=== PATIENT | female | born 1935 | race Caucasian/White ===

== ENCOUNTER 2017-10-13 23:23 | Emergency (ER) | payer MEDICARE ==
[~2017-10-13] VITALS: Ht 162.6 cm; Wt 70.8 kg
--- OUTSIDE RECORDS SUMMARY | 2017-10-13 23:26 | XMS REPORT | Clinical Summary ---
Author Author ERLINDA [employer] [facility] Organization [facility] [employer] [facility] Address Unknown Phone Unavailable Care Team Providers Care Assembly Member Name Role Phone PCP Unavailable Allergies Not on File Current Medications Not on file Active Problems Not on file Encounters Date Type Specialty Care Team Description 07/01/2017 Hospital Yvan Mclean MD Cough Encounter 07/01/2017 Outside Orders Yvan Mclean MD Cough (Primary Dx) after 10/12/2016 Social History Tobacco Use Types Packs/Day Years Used Date Never Assessed Sex Assigned at Date Recorded Not on file Last Filed Vital Signs Not on file Plan of Treatment Not on file Results * XR Chest 2 Views (07/01/2017 12:50 PM) Specimen Performing Laboratory GE [facility]IS Narrative FINAL REPORT TECHNIQUE: 2 views of the chest. COMPARISON: None FINDINGS: The cardiac silhouette is within normal limits.Hiatal hernia suspected. Lungs are clear.No acute skeletal abnormality. Soft tissues appear unremarkable. IMPRESSION: No acute cardiopulmonary disease. Signed: Makeda Khalil MD Report Verified Date/Time:07/01/2017 15:23:54 Reading Location: [facility] Radiology Reading Room Procedure Note Interface, External Ris In - 07/01/2017 3:26 PM SAP CRM DEVELOPER FINAL REPORT TECHNIQUE: 2 views of the chest. COMPARISON: None FINDINGS: The cardiac silhouette is within normal limits. Hiatal hernia suspected. Lungs are clear. No acute skeletal abnormality. Soft tissues appear unremarkable. IMPRESSION: No acute cardiopulmonary disease. Signed: Makeda Khalil MD Report Verified Date/Time: 07/01/2017 15:23:54 Reading Location: [facility] Radiology Reading Room after 10/12/2016
--- OUTSIDE RECORDS SUMMARY | 2017-10-13 23:26 | XMS REPORT | Clinical Summary ---
Author Author [facility] Address Unknown Phone Unavailable Care Team Providers Care Blower Feeder Dyed Raw Stock Name Role Phone Asked, Pcp PCP Unavailable Allergies Not on File Current Medications Not on file Active Problems Not on file Encounters Date Type Specialty Care Team Description 07/04/2017 Hospital Radiology Ratna Zhang MD Dysphagia, unspecified Encounter type 07/03/2017 Transcribe Access Ratna Zhang MD Dysphagia, unspecified Orders type (Primary Dx) after 10/12/2016 Social History Tobacco Use Types Packs/Day Years Used Date Never Assessed Sex Assigned at Date Recorded Not on file Last Filed Vital Signs Not on file Plan of Treatment Health Maintenance Due Date Last Done Comments ZOSTER VACCINE 1993 PNEUMOCOCCAL 1998 POLYSACCHARIDE VACCINE AGE 65 AND OVER PNEUMOCOCCAL-13 1998 INFLUENZA VACCINE 03/25/2017 Results * FL Modified Barium Swallow (07/04/2017 11:19 AM) Specimen Performing Laboratory [facility] [address] [place] [id number] Narrative EXAMINATION:FL MODIFIED BARIUM SWALLOW CLINICAL HISTORY:R13.10 Dysphagiaunspecified, R13.10 COMPARISON:None. Fluoroscopy time: 2.9TOTAL IMAGES:1Peak Skin Dose:8.6 mGy FINDINGS: 1.The patient swallowed varying consistencies of barium under direct lateral fluoroscopic evaluation. The study was performed in conjunction with speech pathology. IMPRESSION: 1.There is deep laryngeal penetration with the thin contrast barium to the level the vocal cords. Mild penetration was noted with the nectar consistency. The patient was able to tolerate the semisolid barium consistency. No evidence for aspiration. Please refer to Speech Pathology report for further details. [facility]-[id number] Procedure Note Interface, Radiology Results Incoming - 07/04/2017 1:19 PM GIS TECHNICIAN EXAMINATION: FL MODIFIED BARIUM SWALLOW CLINICAL HISTORY: R13.10 Dysphagia unspecified, R13.10 COMPARISON: None. Fluoroscopy time: 2.9 TOTAL IMAGES: 1 Peak Skin Dose: 8.6 mGy FINDINGS: 1. The patient swallowed varying consistencies of barium under direct lateral fluoroscopic evaluation. The study was performed in conjunction with speech pathology. IMPRESSION: 1. There is deep laryngeal penetration with the thin contrast barium to the level the vocal cords. Mild penetration was noted with the nectar consistency. The patient was able to tolerate the semisolid barium consistency. No evidence for aspiration. Please refer to Speech Pathology report for further details. [facility]-[id number] after 10/12/2016 Insurance Payer Benefit Subscriber ID Type Phone Address Plan / Group HUMANA MEDICARE HUMANA xxxxxxxxx PPO MEDICARE PPO/PFFS/E [facility] ([place], [place]) Home: [address] [place], [place] [phone] [place] [address]
--- OUTSIDE RECORDS SUMMARY | 2017-10-13 23:26 | XMS REPORT ---
Author Author [facility] Address Unknown Phone Unavailable Care Team Providers Care Custom Grinder Name Role Phone Unavailable Unavailable Problems This patient has no known problems. Allergies, Adverse Reactions, Alerts This patient has no known allergies or adverse reactions. Medications This patient has no known medications. Results Test Description Test Time Test Comments Text Results Atomic Results Result Comments RAD, CHEST, 2 VIEWS 2017-07-01 15:23:00 Reason for Exam:->COUGH FINAL REPORT TECHNIQUE: 2 views of the chest. COMPARISON: None FINDINGS: The cardiac silhouette is within normal limits. Hiatal hernia suspected. Lungs are clear. No acute skeletal abnormality. Soft tissues appear unremarkable. IMPRESSION: No acute cardiopulmonary disease. Signed: Makeda Yancey Verified Date/Time: 07/01/2017 15:23:54 Reading Location: [facility] Radiology Reading Room Electronically signed by: MAKEDA YANCEY M.D. on 02/2017 03:23 PM
--- NOTE | 2017-10-14 00:37 | Diagnostic Imaging Report ---
EXAMINATION: CHEST SINGLE (PORTABLE) INDICATION: Shortness of breath COMPARISON: 07/09/2009 FINDINGS: TUBES and LINES: None. LUNGS: Lungs are well inflated. Lungs are clear. There is no evidence of pneumonia or pulmonary edema. PLEURA: No pleural effusion or pneumothorax. HEART AND MEDIASTINUM: The cardiomediastinal silhouette is unremarkable. BONES AND SOFT TISSUES: No acute osseous lesion. Soft tissues are unremarkable. UPPER ABDOMEN: No free air under the diaphragm. IMPRESSION: No acute thoracic abnormality. Signed by: Dr. Lloyd King M.D. on 10/14/2017 12:33 AM
--- NOTE | 2017-10-14 00:46 | Diagnostic Imaging Report ---
Exam: Cervical spine CT without IV contrast History: Neck pain Comparison studies: None Technique: Axial images were obtained through the cervical region. Coronal and sagittal images reconstructed from the axial data. Intravenous contrast: None Findings: Atlantoaxial articulation: Intact Alignment: Normal lordosis. No subluxations. Cervicomedullary junction: No abnormalities. Patent foramen magnum. Soft tissues: No gross abnormalities. Vertebrae: No fractures, neoplasm or infection. Degenerative changes: C2-C3: No abnormalities. C3-C4: Mild uncovertebral facet arthrosis without significant foraminal stenosis. Patent canal. C4-C5: Small central disc protrusion indents the thecal sac without significant canal stenosis. Mild right foraminal stenosis due to uncovertebral facet arthrosis. Patent left foramen. C5-C6: Mildly degenerated disc. Disc osteophyte complex indents the thecal sac but does not result in significant canal stenosis. Moderate left and mild right foraminal stenosis due to uncovertebral facet arthrosis. C6-C7: Mild right foraminal stenosis due to uncovertebral and facet arthrosis. Patent canal and left foramen. C7-T1: Patent canal and foramina. Incidental findings: Atherosclerotic calcifications at the cervical carotid bifurcations. Mild bilateral pleural thickening and scarring at the lung apices. IMPRESSION: 1. No cervical spine fracture or subluxation 2. Moderate left C5-C6 degenerative foraminal stenosis. 3. Additional degenerative changes as described. 4. No significant canal stenosis. Cannot adequately evaluate ligament, spinal cord and or vascular abnormalities cannot be excluded on the basis of this examination. Signed by: Dr. Andrew Jones M.D. on 10/14/2017 12:42 AM
[2017-10-14 01:06] VITALS: BP 130/63
== END 2017-10-14 01:27 | disposition home or self-care (01) ==
LOC: ER 23:23
DX: M54.2 Cervicalgia (principal); M47.812 Spondylosis without myelopathy or radiculopathy, cervical region
CPT/HCPCS: 71045; 72125; 99284